=== PATIENT | female | born 2000 | race Hispanic/Latino ===

== ENCOUNTER → 2024-01-28 | Emergency (ER) | payer OTHER ==
[~2024-01-28] VITALS: Ht 157.5 cm; Wt 83.9 kg
[2024-01-28 16:51] VITALS: BP 146/80; PULSE 100; RESP 16
== END ==
LOC: EDH 16:45
DX: M54.9 Dorsalgia, unspecified (principal); Z53.21 Procedure and treatment not carried out due to patient leaving prior to being seen by health care provider